=== PATIENT | male | born 1955 | race Two or more races ===

== ENCOUNTER 2022-09-23 14:15 | Emergency (ER) | payer MEDICARE, SELFPAY ==
[2022-09-23 14:23] VITALS: BP 143/88; PULSE 100; RESP 19; TEMP 36.1; O2SAT 98; BMI 30.2
--- NOTE | 2022-09-23 14:24 | ED_ITS ---
HPI - General Adult General Chief complaint: Wound/Laceration Stated complaint: Insect bite left ear Time Seen by Provider: 09/23/22 14:31 Source: patient Mode of arrival: ambulatory Limitations: no limitations History of Present Illness HPI narrative: Patient is a 67 year old assigned male at with no reported medical history presenting to the emergency department today with multiple insect bites. Patient states that he was working with some wood yesterday when something flew out and stung him on his left ear and right upper arm. Patient denies any dizziness, lightheadedness, abdominal pain, nausea, vomiting, fever, chills, blurry vision, double vision, loss of vision, chest pain, difficulty breathing, shortness of breath, back pain, night sweats, pain with urination, increased urinary frequency, increased urinary urgency, blood in his urine or stool, syncope or a near syncopal episode, recent trauma or falls, bowel incontinence, bladder incontinence, bowel retention, bladder retention, or any other complaints at this time. Onset (ago): day(s) (1) Location: left (ear) and right (upper arm) Severity: mild Relieving factors: none Exacerbating factors: none Associated symptoms: denies other symptoms Treatments prior to arrival: none Related Data Previous Rx's Medication Instructions Recorded cephalexin 500 mg capsule 500 mg PO Q6H 7 days #28 caps 09/23/22 prednisone 20 mg tablet 20 mg PO DAILY 7 days #7 tabs 09/23/22 Allergies Allergy/AdvReac Type Severity Reaction Status Date / Time No Known Allergies Allergy Verified 09/23/22 14:23 Review of Systems Constitutional: Constitutional: Reports no additional constitutional complaints, Denies chills, Denies fever(s) and Denies night sweats Eyes: Eyes: Reports no additional eye complaints, Denies blurry vision, Denies change in vision, Denies diplopia, Denies eye discharge, Denies loss of vision and Denies eye pain ENT: Denies dizziness Comments: left ear swelling, redness Cardiovascular: Cardiovascular: Reports no additional cardiovascular complaints, Denies chest pain, Denies lightheadedness, Denies Loss of Consciousness and Denies dyspnea Respiratory: Respiratory: Reports no additional respiratory complaints and D enies dyspnea Gastrointestinal: Gastrointestinal: Reports no additional gastrointestinal complaints, Denies abdominal pain, Denies melena, Denies hematochezia, Denies change in bowel habits and Denies change in stool character Genitourinary: Genitourinary: Reports no additional male genitourinary complaints, Denies hematuria, Denies oliguria, Denies difficulty urinating, Denies dysuria, Denies urinary frequency, Denies urinary hesitancy, Denies urinary incontinence and Denies urinary urgency Musculoskeletal: Musculoskeletal: Reports no additional musculoskeletal complaints, Denies numbness and Denies tingling Neurologic: Denies dizziness, Denies loss of vision, Denies numbness and Denies tingling Psychiatric: Psychiatric: Reports no additional psychiatric complaints Endocrine: Endocrine: Reports no additional endocrine complaints Hematologic/Lymphatic: Hematologic/Lymphatic: Reports no additional hematologic/lymphatic complaints Allergic/Immunologic: Allergic/Immunologic: Reports no additional allergic/immunologic complaints PMFSH Past Medical History Attestation statement: The following information was validated with the patient. Source: old records reviewed and nursing notes reviewed Social History Social History Advance Directives: No Advance Directives Information Provided: Yes Physical Exam ED Vital Signs: Vital Signs - 24 hr 09/23/22 14:23 Temperature 97 F Pulse Rate 100 Respiratory Rate 19 Blood Pressure 143/88 H Pulse Oximetry 98 Oxygen Delivery Method Room Air BMI result Body Mass Index 30.2 Const General: cooperative, no acute distress, alert and awake Nutritional Appearance: well nourished Orientation/consciousness: patient oriented x3 Limitations: no limitations HENMT Head: Yes normal to inspection and Yes atraumatic Ears: other (left upper ear swelling with minimal erythema and draining of se cornelia fluid) General nose exam: Normal external nose present, no nasal discharge noted and no epistaxis Face and sinus: Yes normal facial exam, No abrasion and No laceration Mouth: Normal oral and palatal mucosa present, no drooling and no muffled voice Eyes General: appearance normal, both eyes and all related structures Periorbital: periorbital findings normal Eyelids: Yes eyelids normal Conjunctivae: conjunctivae normal Pupils: Equal, round and reactive pupils present EOM: EOMs intact bilaterally Neck Neck: Yes normal visual inspection, Yes full ROM and Yes no lymphadenopathy Chest Chest palpation & inspection: normal inspection of the chest Resp Effort & Inspection: normal respiratory effort and able to speak in complete sentences GI Inspection: Yes normal to inspection Neuro General: patient oriented x3 and moves all extremities Cranial nerves: Yes Equal, round and reactive pupils present Cognition (Neuro): normal cognition Motor exam (neuro): 5/5 motor strength present throughout Sensory Exam: Normal double simultaneous stimulation for sensation Coordination: [id number] test normal Extrem General: Yes normal to inspection, Yes full ROM and Yes capillary refill normal Psych Appearance: grossly normal Mental Status: mental status grossly normal Affect: normal affect Attitude: cooperative Thought process: Normal thought process present Thought content: Normal thought content present Insight: Good insight present (Psych) Course Course Course Narrative: RME: 67 yold male presents to the ED for insecite bites on body with the worse being left ear. left ear is red, swollen, and positive for blisters. patient has bite david on right arms and scalp. patient states she was going through plants yesterday. Medical Decision Making Medical Decision Making [facility] Narrative: Patient is a 67 year old assigned male at with no reported medical history presenting to the emergency department today with left ear swelling and pain. Patient's physical exam showed mild swelling and erythema to the left upper ear and draining serous fluid. I explained my physical exam findings to the patient. I answered all questions asked by the patient. I stressed the importance of the patient taking his medication as prescribed. I stressed the importance of the patient following up with his primary care provider and a general surgeon to evaluate if the left ear needs drained further, IF the swelling persists after ABX and steroids. I stressed the importance of the patient returning to the emergency department immediately if his symptoms were to worsen or if he were to develop any dizziness, shortness of breath, difficulty breathing, chest pain, blurry vision, loss of vision, nausea, vomiting, abdominal pain, fever, chills, back pain, or any other complaints. Patient verbalized agreement and understanding with this treatment plan and discharge. Differential Diagnosis Differential Diagnoses: The differential diagnosis associated with the presentation includes insect sting to the left ear Discharge Plan Discharge Clinical Impression: Insect bite Patient Disposition: Home, Self-Care Instructions: Insect Bite or Sting (ED) Additional Instructions: Follow up with your primary care provider and if the swelling in your ear persists - a genearl surgeon. Return to the emergency department immediately if your symptoms worsen or if you develop any dizziness, shortness of breath, difficulty breathing, chest pain, blurry vision, loss of vision, nausea, vomiting, abdominal pain, fever, chills, back pain, or any other complaints. Prescriptions: New prednisone 20 mg tablet 20 mg PO DAILY 7 Days Qty: 7 0RF cephalexin 500 mg capsule 500 mg PO Q6H 7 Days Qty: 28 0RF Referrals: [facility] – [place], [place] General Surgeons [Provider Group] (Call to establish and follow up with a general surgeon if your left ear swelling persists. ) [facility] [Primary Care Provider] - Interventions: ED Discharge Assessment Last Done: 09/23/22 14:55 Discharge Date/Time: 09/23/22 14:57 Print Language: Armenian
== END 2022-09-23 14:57 | disposition home or self-care (01) ==
PROVIDERS: Emergency Provider Emergency Medicine
DX: H93.8X2 Other specified disorders of left ear (principal); Z79.899 Other long term (current) drug therapy
CPT/HCPCS: 99282; 99283

== ENCOUNTER 2022-12-03 12:09 | Emergency (ER) | payer MEDICARE, SELFPAY ==
[2022-12-03 12:44] VITALS: BP 136/79; PULSE 76; RESP 18; TEMP 36.6; O2SAT 99; BMI 29.6
--- NOTE | 2022-12-03 12:46 | ED_ITS ---
HPI - Animal Bite General Chief Complaint: Animal Bite Stated Complaint: Bug Bites Time Seen by Provider: 12/03/22 12:48 Source: patient and old records reviewed Mode of arrival: ambulatory Limitations: no limitations History of Present Illness HPI narrative: 67 yo male presents to the ER for evaluation of multiple red, itchy, inflamed bug bites on his face that occurred 2 days ago when he was working in his yard. He states he has 3 separate bites that have increased significantly in size, are red, hot, and swollen. They are very itchy and starting to ooze. Denies fever, chills, N/V/D, myalgias. No known tick bites. He states he was seen he seen here in August for similar issue and got prescription for steroids and antibiotics with resolution. complaint: other (insect bites) Onset (ago): day(s) (2) Animal: other (insect, unknown) Mechanism: bite Location: head and face Pain description: burning and constant Associated symptoms: none Treatments prior to arrival: other (topical alcohol) Related Data Patient tetanus UTD: Yes Previous Rx's Medication Instructions Recorded cephalexin 500 mg capsule 500 mg PO Q6H 7 days #28 caps 09/23/22 prednisone 20 mg tablet 20 mg PO DAILY 7 days #7 tabs 09/23/22 cephalexin 500 mg capsule 500 mg PO Q6H 7 days #28 caps 12/03/22 mupirocin 2 % topical ointment 1 appl topical BID #22 grams 12/03/22 prednisone 20 mg tablet 40 mg PO DAILY #10 tabs 12/03/22 Allergies Allergy/AdvReac Type Severity Reaction Status Date / Time No Known Allergies Allergy Verified 09/23/22 14:23 Review of Systems Review of Systems: Yes all other systems are reviewed and are negative [facility] Social History Social History Advance Directives: No Advance Directives Information Provided: Yes Physical Exam ED Vital Signs: Vital Signs - 24 hr 12/03/22 12:44 Temperature 97.9 F Pulse Rate 76 Respiratory Rate 18 Blood Pressure 136/79 Pulse Oximetry 99 Oxygen Delivery Method Room Air BMI result Body Mass Index 29.6 Appearance: Alert. Oriented X3. No acute distress. HEENT: 3 areas of erythema, warmth, tenderness w/ central oozing moderate sized located on the left mandaeism, right post-auricular area and left ear lobe. clear drainage. no fluctuance CVS: Normal heart rate and rhythm. Pulses normal. Respiratory: No respiratory distress. Skin: Skin warm and dry. Normal skin color. Normal skin turgor. No rashes. Extremities: normal inspection x4, no joint swelling. Neuro: Oriented X 3. grossly normal, nonfocal Medical Decision Making Medical Decision Making [facility] Narrative: 67 yo male presenting for evaluation of multiple erythematous, swollen, itchy areas on his face and head after working in his yard c/w insect bites. They have increased in size and are draining. Exam c/w localized cellulitic areas. Will treat w/ abx, steroids and benadryl. Return precautions discussed w/ the patient. Stable for d/c home Differential Diagnosis Differential Diagnoses: The differential diagnosis associated with the presen tation includes allergic reaction, insect bites, cellulitis, abscess, poison ranjana External Record Review External record reviewed: Outpatient record Prescription Management I considered prescription management with: Pain Medication and Antibiotic Critical Care Time Critical Care Time Critical Care Time: No Discharge Plan Discharge Clinical Impression: Insect bite, Cellulitis Patient Disposition: Home, Self-Care Instructions: Cellulitis (DC) Additional Instructions: Take the prescribed antibiotics as directed, complete the entire course and do not miss any doses You can take Benadryl 25-50 mg as needed for itching. If you develop new or worsening symptoms call 911 or come back to the ER for further evaluation. Prescriptions: New cephalexin 500 mg capsule 500 mg PO Q6H 7 Days Qty: 28 0RF prednisone 20 mg tablet 40 mg PO DAILY Qty: 10 0RF mupirocin 2 % ointment 1 appl topical BID Qty: 22 0RF No Action prednisone 20 mg tablet 20 mg PO DAILY 7 Days Qty: 7 0RF cephalexin 500 mg capsule 500 mg PO Q6H 7 Days Qty: 28 0RF
== END 2022-12-03 13:05 | disposition home or self-care (01) ==
LOC: HO.ED 12:52
PROVIDERS: Emergency Provider Emergency Medicine
DX: L03.211 Cellulitis of face (principal); Z79.899 Other long term (current) drug therapy
CPT/HCPCS: 99282; 99283

== ENCOUNTER 2024-05-25 23:38 | Emergency (ER) | payer OTHER, SELFPAY ==
--- NOTE | ~2024-05-25 | XR_ITS ---
CLINICAL HISTORY: fall 3 view right hand Comparison: None Findings: No acute fractures or dislocations. Degenerative changes present at the radioscaphoid articulation with joint space narrowing at this site. No radiopaque foreign body. IMPRESSION: 1. No acute fracture or dislocation injury identified at the right hand. This document has been electronically signed by: Leo Dial MD on 05/26/2024 00:10:41
[2024-05-25 23:42] VITALS: BP 138/74; PULSE 95; RESP 17; TEMP 36.9; O2SAT 98; BMI 29.7
--- NOTE | 2024-05-26 00:15 | ED.EXTPRO ---
HPI - Extremity Problem General Chief complaint: Extremity Injury, Upper Stated complaint: right hand swollen - fall Time Seen by Provider: 05/26/24 00:15 Source: patient Mode of arrival: ambulatory Limitations: no limitations History of Present Illness ED Provider: HPI Narrative: Patient apparently tripped and fell around 18:00 for walking to his mailbox over extended his right hand complaining of diffuse pain with the right wrist also has superficial abrasion right knee ambulatory in his steady gait otherwise no head injury not on any blood thinner Related Data Previous Rx's ?Medication ?Instructions ?Recorded cephalexin 500 mg capsule 500 mg PO Q6H 7 days #28 caps 09/23/22 prednisone 20 mg tablet 20 mg PO DAILY 7 days #7 tabs 09/23/22 cephalexin 500 mg capsule 500 mg PO Q6H 7 days #28 caps 12/03/22 mupirocin 2 % topical ointment 1 appl topical BID #22 grams 12/03/22 prednisone 20 mg tablet 40 mg (2 x 20 mg) PO DAILY #10 tabs 12/03/22 ibuprofen 600 mg tablet 600 mg PO Q6H PRN fever or pain 05/26/24 #30 tabs Allergies Allergy/AdvReac Type Severity Reaction Status Date / Time No Known Allergies Allergy Verified 05/25/24 23:45 Review of Systems Review of Systems: Yes all other systems are reviewed and are negative [facility] Social History Social History Advance Directives: No Advance Directives Information Provided: Yes Do you have a plan to hurt others: No Plan Physical Exam Vital Signs: Vital Signs: Last Vital Signs Temp 98.4 F 05/25/24 23:42 Pulse 95 05/25/24 23:42 Resp 17 05/25/24 23:42 BP 138/74 05/25/24 23:42 Pulse Ox 98 05/25/24 23:42 O2 Del Method Room Air 05/25/24 23:42 BMI result Body Mass Index 29.7 Appearance: Alert. Oriented X3. No acute distress. ENT: Pharynx normal. Oral Mucosa moist Neck: Normal inspection. Neck supple. CVS: Normal heart rate and rhythm. Pulses normal. Respiratory: No respiratory distress. Equal air entry bilateral, no wheezing/rales/rhonchi Skin: Skin warm and dry. Normal skin color. Normal skin turgor. Extremities: No lower extremity edema. Right wrist diffuse swelling the dorsum no focal bony tenderness good range of movement neurovascular intact, right knee superficial abrasion no knee effusion patient ambulatory in steady gait without significant pain Neuro: Oriented X 3. Medical Decision Making Medical Decision Making [facility] Narrative: Patient with right wrist sprain will place wrist splint and advised to take ibuprofen patient advised to follow up in 7-10 days if pain continues for repeat x-ray to rule out fracture Differential Diagnosis Differential Diagnoses: The differential diagnosis associated with the presentation includes Contusion of the hand/scaphoid fracture/wrist fracture Independent Interpretation I performed an independent interpretation of an: Plain X-Ray Radiology Impression Discussion of test interpretation with radiology: I have reviewed the radiologist's reading. Radiologist Impression: No fracture Discharge Plan Discharge Clinical Impression: Sprain and strain of wrist Patient Disposition: Home, Self-Care Instructions: Wrist Sprain (ED) Additional Instructions: Your x-rays negative for any fracture Wear the wrist splint for support Ibuprofen for pain Report to the ER if pain continues for repeat x-ray in 10 days Prescriptions: New ibuprofen 600 mg tablet 600 mg PO Q6H PRN (Reason: fever or pain) Qty: 30 0RF No Action cephalexin 500 mg capsule 500 mg PO Q6H 7 Days Qty: 28 0RF prednisone 20 mg tablet 40 mg PO DAILY Qty: 10 0RF mupirocin 2 % ointment 1 appl topical BID Qty: 22 0RF prednisone 20 mg tablet 20 mg PO DAILY 7 Days Qty: 7 0RF cephalexin 500 mg capsule 500 mg PO Q6H 7 Days Qty: 28 0RF Print Language: Grenadian
[2024-05-26] MEDS: Ibuprofen 600 MG TABLET PO (00:33)
== END 2024-05-26 00:41 | disposition home or self-care (01) ==
PROVIDERS: Emergency Provider Internal Medicine
DX: S63.501A Unspecified sprain of right wrist, initial encounter (principal); S80.211A Abrasion, right knee, initial encounter; M25.531 Pain in right wrist; X50.1XXA Overexertion from prolonged static or awkward postures, initial encounter; Y93.9 Activity, unspecified; Y92.007 Garden or yard of unspecified non-institutional (private) residence as the place of occurrence of the external cause; Y99.8 Other external cause status
CPT/HCPCS: 29125; 73130; 99283; 99284

== ENCOUNTER → 2024-05-25 23:55 | Outpatient (BNV) | payer OTHER, SELFPAY | PROVIDERS: Emergency Provider Internal Medicine; Visit Provider Radiology Diagnostic Radiology | DX: S63.501A Unspecified sprain of right wrist, initial encounter (principal); W19.XXXA Unspecified fall, initial encounter | CPT/HCPCS: 73130 ==

== ENCOUNTER 2024-12-25 19:07 | Emergency (ER) | payer OTHER, SELFPAY ==
--- NOTE | ~2024-12-25 | XR_ITS ---
CLINICAL HISTORY: pain Abdominal radiographs Comparison: None available Findings: There is a nonobstructive bowel gas pattern. Stool quantity is moderately increased. No pneumoperitoneum or pneumatosis. No acute osseous or soft tissue abnormality. Impression: Moderately increased stool quantity may indicate constipation. This document has been electronically signed by: Salima Goldstein MD on 12/25/2024 20:48:49
[2024-12-25 19:13] VITALS: BP 132/63; PULSE 99; RESP 18; TEMP 36.9; O2SAT 98; BMI 28.7
--- NOTE | 2024-12-25 19:15 | ED_ITS ---
HPI - General Adult General Chief complaint: Abdominal Pain Stated complaint: left side abd pain Time Seen by Provider: 12/25/24 19:31 Source: patient Limitations: no limitations History of Present Illness ED Provider: Yadira Choi PA-C HPI narrative: 69-year-old male presents with the abdominal pain x3 days. Pain is intermittent, described as ?a warm sensation?. It is nonradiating. Most focal in left lower abdomen. Denies nausea vomiting diarrhea. The patient states he has been having minimal bowel movements, passing small amounts of stool at a time. Denies abdominal distention or inability to pass flatus from below, no fevers. Patient denies dysuria, hematuria, history of kidney stones. No testicular pain or swelling. Related Data Previous Rx's ?Medication ?Instructions ?Recorded cephalexin 500 mg capsule 500 mg PO Q6H 7 days #28 cap s 09/23/22 prednisone 20 mg tablet 20 mg PO DAILY 7 days #7 tab s 09/23/22 cephalexin 500 mg capsule 500 mg PO Q6H 7 days #28 cap s 12/03/22 mupirocin 2 % topical ointment 1 appl topical BID #22 grams 12/03/22 prednisone 20 mg tablet 40 mg (2 x 20 mg) PO DAILY # 10 tabs 12/03/22 ibuprofen 600 mg tablet 600 mg PO Q6H PRN fever or p ain 05/26/24 #30 tabs Allergies Allergy/AdvReac Type Severity Reaction Status Date / Time No Known Allergies Allergy Verified 12/25/24 19:17 Review of Systems 2 Review of Systems: Yes all other systems are reviewed and are negative Constitutional: Constitutional: Denies fatigue and Denies fever(s) Cardiovascular: Cardiovascular: Denies chest pain and Denies dyspnea Respiratory: Respiratory: Denies dyspnea Gastrointestinal: Gastrointestinal: Reports abdominal pain, Denies bloating, Reports constipation, Denies diarrhea, Denies nausea and Denies vomiting Genitourinary: Genitourinary: Denies hematuria, Denies dysuria and Denies flank pain Endocrine: Endocrine: Denies fatigue PMFSH Past Medical History Attestation statement: The following information was validated with the patient. Physical Exam ED Vital Signs: Vital Signs - 24 hr 12/25/24 19:13 12/25/24 21:49 Temperature 98.4 F 98.3 F Pulse Rate 99 54 Respiratory Rate 18 16 Blood Pressure 132/63 110/62 Pulse Oximetry 98 96 Oxygen Delivery Method Room Air Room Air BMI result Body Mass Index 28.7 Const Other: Alert well-appearing Orientation/consciousness: patient oriented x3 Resp Effort & Inspection: normal respiratory effort Cardio Other: Normal peripheral perfusion GI Other: Abdomen is soft, nondistended nontender no guarding Skin Other: Warm dry no rash Neuro General: patient oriented x3, gait normal, no focal motor deficits and CN's II- XI intact bilaterally Psych Other: Cooperative Course Course Course Narrative: RME, this is a rapid medical exam performed by Jagdeep Naranjo please refer to primary provider for complete H&P- 69-year-old male presents for evaluation of left-sided abdominal pain for the last few days. He reports he is having normal bowel movements, denies any nausea vomiting, diarrhea. His pain is worse when he plays in his left side. Plan for basic labs and urinalysis. Will defer any potential imaging to primary ER provider Medications Administered Discontinued Medications Generic Name Dose Route Start Last Admin Trade Name Freq PRN Reason Stop Dose Admin Sodium Chloride 500 mls @ 500 mls/hr 12/25/24 19:49 12/25/24 21:10 Ns IV 12/25/24 20:48 Infused .Q1H ONE Infusion Ketorolac Tromethamine 15 mg 12/25/24 19:49 12/25/24 20:07 Ketorolac Tromethamine 15 Mg/Ml Vial IVPUSH 12/25/24 19:50 15 mg ONCE ONE Administration Medical Decision Making Medical Decision Making [facility] Narrative: 69-year-old male presents with the abdominal pain x3 days. Pain is intermittent, described as ?a warm sensation?. It is nonradiating. Most focal in left lower abdomen. Denies nausea vomiting diarrhea. The patient states he has been having minimal bowel movements, passing small amounts of stool at a time. Denies abdominal distention or inability to pass flatus from below, no fevers. Patient denies dysuria, hematuria, history of kidney stones. No testicular pain or swelling. No underlying chronic issues History: Per patient I have considered the following differential diagnoses: Bowel obstruction, constipation, UTI, renal colic, diverticulitis, torsion Plan: The patient is likely constipated without obstructive symptoms. Screening labs obtained and are completely normal. We will obtain a KUB. He has no related symptoms to suggest UTI. There was no back pain flank pain active GI symptoms to suggest renal colic. Imaging not warranted, do not need a UA I have independently reviewed the following tests: Labs: No leukocytosis, not anemic, no electrolyte abnormality noted KUB:Findings: There is a nonobstructive bowel gas pattern. Stool quantity is moderately increased. No pneumoperitoneum or pneumatosis. No acute osseous or soft tissue abnormality. Impression: Moderately increased stool quantity may indicate constipation. Differential Diagnosis Differential Diagnoses: The differential diagnosis associated with the presentation includes See medical decision-making Admission/Observation Consideration of admission/observation: Escalation of care including admission/observation considered Not applicable Lab Data MDM Lab Attestation statement: I reviewed the patient's lab results. 12/25/24 19:29 12/25/24 19:29 Labs: Lab Results 12/25/24 Range/Units 19:29 WBC 7.9 (4.8-10.8) X10*3/uL RBC 4.05 L (4.60-5.80) X10*6/uL Hgb 12.6 L (14.0-18.0) g/dl Hct 37.8 L (42.0-52.0) % MCV 93.3 (80.0-98.0) fL MCH 31.1 (27.0-33.0) pg MCHC 33.3 (31.0-36.0) g/dl RDW 13.6 (11.0-16.0) % Plt Count 260 (160-400) X10*3/uL MPV 10.2 (9.4-12.4) fL Immature Gran % (Auto) 0.3 (0.0-0.4) % Neut % (Auto) 55.4 (45-73) % Lymph % (Auto) 31.7 (20-40) % [place] % (Auto) 8.9 (2-11) % Eos % (Auto) 2.8 (0-4) % Baso % (Auto) 0.9 (0-2) % Lymph # (Auto) 2.5 (1.2-4.9) X10*3/uL [place] # (Auto) 0.7 (0.1-1.2) X10*3/uL Eos # (Auto) 0.2 (0.0-0.4) X10*3/uL Baso # (Auto) 0.1 (0.0-0.2) X10*3/uL Abs Immat Gran (auto) 0.02 (0.00-0.03) X10*3/uL Absolute Neuts (auto) 4.4 (2.0-8.3) x10*3/uL Absolute Nucleated RBC 0.000 (0.0-0.012) X10*3/uL Nucleated RBC % (auto) 0.0 (0.0-0.2) /100WBC Sodium 143 (135-145) mmol/L Potassium 4.1 (3.3-5.1) mmol/L Chloride 107 (96-108) mmol/L Carbon Dioxide 25 (22-29) mmol/L Anion Gap 15 (12-20) BUN 19 H (9-16) mg/dL Creatinine 1.21 (0.5-1.4) mg/dL Estim Creat Clear Calc 61.1 Estimated GFR 60 Random Glucose 75 (60-115) mg/dL Calcium 9.1 (8.4-10.2) mg/dL Magnesium 2.3 (1.6-2.6) mg/dL Total Bilirubin 0.4 (0.0-1.0) mg/dL AST 38 H (5-37) U/L ALT 18 (0-40) U/L Alkaline Phosphatase 62 (39-117) U/L Total Protein 7.7 (6.5-8.0) g/dL Albumin 4.3 (3.5-5.0) g/dL Lipase 10 (8-78) U/L Radiology Impression Discussion of test interpretation with radiology: I have reviewed the radiologist's reading. Discharge Plan Discharge Clinical Impression: Constipation Patient Disposition: Home, Self-Care Instructions: Constipation (ED) Additional Instructions: All of your screening labs were normal. You were found to be constipated. See home care instructions. You can purchase [id number] Colace, this is a stool softener, use it twice a day. In addition, use [id number] MiraLax, 3 to 4 times a day until you begin having regular normal bowel movements. Follow up with your primary care provider as needed. Prescriptions: No Action cephalexin 500 mg capsule 500 mg PO Q6H 7 Days Qty: 28 0RF prednisone 20 mg tablet 40 mg PO DAILY Qty: 10 0RF mupirocin 2 % ointment 1 appl topical BID Qty: 22 0RF ibuprofen 600 mg tablet 600 mg PO Q6H PRN (Reason: fever or pain) Qty: 30 0RF prednisone 20 mg tablet 20 mg PO DAILY 7 Days Qty: 7 0RF cephalexin 500 mg capsule 500 mg PO Q6H 7 Days Qty: 28 0RF Interventions: ED Discharge Assessment Last Done: 12/25/24 22:13 Discharge Date/Time: 12/25/24 22:14 Print Language: Romanian
[2024-12-25 19:33] LABS: MANUAL DIFF FLAG NO
--- OUTSIDE RECORDS SUMMARY | 2024-12-25 19:33 | XMS_ITS | Clinical Summary ---
[facility] Organization [facility] [address] [place] [address] Care Team Providers Care Haul Cane Brakeman Name Role Phone Unavailable Primary Care Provider Unavailabl e Social History Tobacco Use Types Packs/Day Years Used Date Smoking Tobacco: Never Assessed Sex and Gender Information Value Date Recorded Sex Assigned at Not on file Legal Sex Male 6:10 PM EST Gender Identity Not on file Sexual Orientation Not on file Plan of Treatment Health Maintenance Due Date Last Done Comments DTaP,Tdap,and Td Vaccines (1 - Tdap) 01/24/1976 Pneumococcal Vaccine: 50+ Ye ars (1 of 1 - PCV) 2007 Zoster Vaccines (1 of 2) 2007 COVID-19 Vaccine (1 - 2023-2 5 season) 2023 Depression Screening 04/28/2024 Influenza Vaccine (#1) 2024 RSV Immunization Adult Patie nts (1 - 1-dose 75+ series) 01/24/2032 HIB Vaccines Aged Out No longer eligi ble based on patient's age to complete this topic HPV Vaccines Aged Out No longer eligi ble based on patient's age to complete this topic Hepatitis A Vaccines Aged Out No long er eligible based on patient's age to complete this topic Hepatitis B Vaccines Aged Out No long er eligible based on patient's age to complete this topic IPV Vaccines Aged Out No longer eligi ble based on patient's age to complete this topic MMR Vaccines Aged Out No longer eligi ble based on patient's age to complete this topic Meningococcal ACWY Vaccine Aged Out N o longer eligible based on patient's age to complete this topic Meningococcal B Vaccine Aged Out No l onger eligible based on patient's age to complete this topic RSV Immunization Patients Un shirlene 20 months Aged Out No longer eligible b ased on patient's age to complete this topic Varicella Vaccines Aged Out No longer eligible based on patient's age to complete this topic
--- OUTSIDE RECORDS SUMMARY | 2024-12-25 19:33 | XMS_ITS | Clinical Summary ---
Author Organization [employer] Address [address] [place] [address] [address] [place] [address] Care Team Providers Care [facility] Name Role Phone Unavailable Primary Care Provider Unavailabl e Social History Tobacco Use Types Packs/Day Years Used Date Smoking Tobacco: Never Assessed Sex and Gender Information Value Date Recorded Sex Assigned at Male 02/25/2022 10:40 AM EDT Legal Sex Male 10:40 AM EDT Gender Identity Male 02/25/2022 10:40 AM EDT Sexual Orientation Straight 02/25/2022 10 :40 AM EDT Last Filed Vital Signs Vital Sign Reading Time Taken Comments Blood Pressure 151/89 01/02/2022 12:09 AM EDT Pulse 90 01/02/2022 12:09 AM EDT Temperature - - Respiratory Rate - - Oxygen Saturation - - Inhaled Oxygen Concentration - - Weight 85.5 kg (188 lb 9.6 oz) 01/02/2022 12:09 AM EDT Height 165.1 cm (5' 5 ) 01/02/2022 12:09 AM EDT Body Mass Index 31.38 01/02/2022 12:09 AM EDT Plan of Treatment Health Maintenance Due Date Last Done Comments CT Colonography 1957 Colonoscopy 1957 Colorectal Cancer Screening 1957 Depression Screening 1957 FIT DNA/Cologuard 1957 FIT 1957 FOBT 1957 Lipid Panel 1957 SDOH Screening 1957 Sigmoidoscopy 1957 Alcohol/Substance Use Screening 1969 Tobacco Screening 1969 Hepatitis C Screening 1975 DTaP/Tdap/Td Vaccines (1 - Tdap) 01/24/1976 Pneumococcal Vaccine: 50+ Ye ars (1 of 1 - PCV) 2007 Zoster Vaccines (1 of 2) 2007 COVID-19 Vaccine (1 - 2023-2 5 season) 2023 Influenza Vaccine (#1) 2024 RSV Patients and Pa tients Aged 60 years or older (1 - 1-dose 75+ series) 01/24/2032 HIB [...] patient's age to complete this topic Meningococcal Vaccine Aged Out No negro luz elena eligible based on patient's age to complete this topic RSV under 20 months Aged Out No longe r eligible based on patient's age to complete this topic Rotavirus Vaccines Aged Out No longer eligible based on patient's age to complete this topic Insurance [employer] MEDICARE ADVANTAGE HMO [facility] [address] [place] [id number] [address] [place] [id number]
[2024-12-25 19:40] LABS: Hematocrit 37.8 % (42.0-52.0); Hemoglobin 12.6 g/dl (14.0-18.0); Imm Gran Abs Auto 0.02 X10*3/uL (0.00-0.03); Imm Gran Pct Auto 0.3 % (0.0-0.4); Lymphocytes Absolute Auto 2.5 X10*3/uL (1.2-4.9); Mean Corpuscular HGB Conc 33.3 g/dl (31.0-36.0); Mean Corpuscular Hemoglobin 31.1 pg (27.0-33.0); Mean Corpuscular Volume 93.3 fL (80.0-98.0); NRBC Abs Auto 0.000 X10*3/uL (0.0-0.012); NRBC Pct Auto 0.0 /100WBC (0.0-0.2); Platelet Count 260 X10*3/uL (160-400); Red Blood Count 4.05 X10*6/uL (4.60-5.80); White Blood Count 7.9 X10*3/uL (4.8-10.8)
[2024-12-25 19:51] LABS: Alanine Aminotransferase 18 U/L (0-40); Albumin Level 4.3 g/dL (3.5-5.0); Alkaline Phosphatase 62 U/L (39-117); Anion Gap 15 (12-20); Aspartate Amino Transferase 38 U/L (5-37); Blood Urea Nitrogen 19 mg/dL (9-16); Calcium 9.1 mg/dL (8.4-10.2); Carbon Dioxide 25 mmol/L (22-29); Chloride 107 mmol/L (96-108); Creatinine Clr Calc Pharmacy 61.1; Estimated Glomerular Filt Rate 60; Lipase 10 U/L (8-78); Magnesium 2.3 mg/dL (1.6-2.6); Potassium 4.1 mmol/L (3.3-5.1); Sodium 143 mmol/L (135-145); Total Protein 7.7 g/dL (6.5-8.0)
[2024-12-25 21:49] VITALS: BP 110/62; PULSE 54; RESP 16; TEMP 36.8; O2SAT 96
[2024-12-25 22:13] VITALS: BP 110/62; PULSE 54; RESP 16; TEMP 36.8; O2SAT 96
== END 2024-12-25 22:14 | disposition home or self-care (01) ==
PROVIDERS: Physician Assistant; Emergency Provider Emergency Medicine
DX: K59.00 Constipation, unspecified (principal); R10.32 Left lower quadrant pain; Z79.899 Other long term (current) drug therapy
CPT/HCPCS: 36415; 74018; 80053; 83690; 83735; 85025; 96361; 96374; 99284; J1885

== ENCOUNTER → 2024-12-25 19:49 | Outpatient (BNV) | payer OTHER, SELFPAY | PROVIDERS: Visit Provider Radiology Diagnostic Radiology | DX: K59.00 Constipation, unspecified (principal) | CPT/HCPCS: 74018 ==

== ENCOUNTER 2025-01-01 20:31 | Emergency (ER) | payer OTHER, SELFPAY ==
--- NOTE | ~2025-01-01 | CT_ITS ---
CLINICAL HISTORY: left groin pain CT abdomen and pelvis without contrast Comparison: CR - XR KUB - 12/25/24 20:24 EDT Findings: No consolidation or effusion. Spleen is normal. Hepatic parenchyma is normal. Gallbladder is partially distended. Pancreas demonstrates fatty atrophic change. Adrenal glands are normal. Kidneys demonstrate no nephrolithiasis or ureteral lithiasis. Small bowel is normal. Colon demonstrates a moderate stool burden. Appendix is normal. There is diverticulosis without diverticulitis. Moderate stool burden in the sigmoid and rectum. Vascular calcifications are noted in the abdominal aorta and iliac arteries. There is an infrarenal abdominal aortic dilatation measuring 3.8 cm. Small fat containing umbilical hernias. No bowel obstruction, pneumoperitoneum, or pneumatosis. The bones are intact. There are bilateral L5 pars defects with severe disc space narrowing at L5/S1 and grade 2 anterolisthesis. Severe bilateral foraminal narrowing is present. IMPRESSION: No acute findings. Moderate stool burden Infrarenal abdominal aortic dilation without meeting aneurysmal criteria. No periaortic fat stranding. L5/S1 spondylolysis with spondylolisthesis. Severe bilateral foraminal narrowing. This document has been electronically signed by: Jeremie Torres III, MD PHD on 01/02/2025 01:42:00
[2025-01-01 20:39] VITALS: BP 127/63; PULSE 65; RESP 20; TEMP 37; O2SAT 97; BMI 30.1
--- NOTE | 2025-01-01 20:39 | ED_ITS ---
HPI - General Adult General Chief complaint: Abdominal Pain Stated complaint: was here 12/31/24 for constipation now feels burning Time Seen by Provider: 01/01/25 22:32 Source: patient Mode of arrival: ambulatory Limitations: no limitations History of Present Illness HPI narrative: This is a 69 years old presented to the emergency department with a chief complaint of left groin pain. He has no other complaint no nausea no vomiting no diarrhea no fever. He was seen in the emergency department on December 25 diagnosed with constipation sent home on MiraLax Onset (ago): week(s) (1) Location: abdomen (Groin left) Radiation: non-radiation Severity: moderate Quality: burning Pain Consistency: constant Relieving factors: none Exacerbating factors: none Associated symptoms: denies other symptoms Related Data Previous Rx's ?Medication ?Instructions ?Recorded cephalexin 500 mg capsule 500 mg PO Q6H 7 days #28 cap s 09/23/22 prednisone 20 mg tablet 20 mg PO DAILY 7 days #7 tab s 09/23/22 cephalexin 500 mg capsule 500 mg PO Q6H 7 days #28 cap s 12/03/22 mupirocin 2 % topical ointment 1 appl topical BID #22 grams 12/03/22 prednisone 20 mg tablet 40 mg (2 x 20 mg) PO DAILY # 10 tabs 12/03/22 ibuprofen 600 mg tablet 600 mg PO Q6H PRN fever or p ain 05/26/24 #30 tabs naproxen 500 mg tablet (Naprosyn) 500 mg PO BID PRN PA IN #20 tabs 01/02/25 Allergies Allergy/AdvReac Type Severity Reaction Status Date / Time No Known Allergies Allergy Verified 01/01/25 20:43 Review of Systems 2 Constitutional: Constitutional: Reports no additional constitutional complaints ENT: Reports system reviewed and no additional complaints, except as documented Respiratory: Respiratory: Reports no additional respiratory complaints [facility] Past Medical History [facility] Narrative: He denies any major medical problems Social History Social History Advance Directives: No Advance Directives Information Provided: No Physical Exam ED Exam Exam: He looks well is not toxic interactive Vital Signs: Vital Signs - 24 hr 01/01/25 20:39 01/02/25 00:28 Temperature 98.6 F 97.0 F Pulse Rate 65 65 Respiratory Rate 20 16 Blood Pressure 127/63 99/56 L Pulse Oximetry 97 95 Oxygen Delivery Method Room Air Room Air BMI result Body Mass Index 30.1 Const General: cooperative Nutritional Appearance: well nourished Orientation/consciousness: patient oriented x3 Limitations: no limitations HENMT Head: Yes normal to inspection Ears: hearing grossly normal bilaterally General nose exam: Normal external nose present Face and sinus: Yes normal facial exam Mouth: Normal oral and palatal mucosa present Throat: Yes posterior oropharynx normal Neck Neck: Yes normal visual inspection Chest Chest palpation & inspection: normal inspection of the chest Resp Effort & Inspection: normal respiratory effort Auscultation: clear to auscultation bilaterally Cardio Jugular venous distension: no JVD Palpation: normal PMI Rate: regular rate GI Inspection: Yes normal to inspection Palpation (GI): Soft to palpation, not firm, nontender and no guarding Percussion: Yes normal to percussion Auscultation: normal bowel sounds Skin General skin exam: no rashes or lesions noted Lesions: no lesions Rashes: no rashes Trauma: no lacerations or abrasions Wounds: no wounds Neuro General: patient oriented x3 Cranial nerves: Yes CN's II-XII intact bilaterally Course Course Course Narrative: This is a Rapid Medical Examination (RME) performed by Azalia June PA-C in triage. Full HPI, ROS, assessment and treatment plan per primary provider in the Main ED. Hx: 69 yo M here for eval of burning sensation to groin area. no N/V, burning w/ urination. here on 12/25/24, diagnosed w/ constipation on KUB, taking stool softeners w/ positive BM. Plan: labs, UA Reevaluation(s) Reevaluation #1: CT negative workup showed that he has a fentanyl in the urine we will discharge him home Time: 01:55 Medications Administered Discontinued Medications Generic Name Dose Route Start Last Admin Trade Name Freq PRN Reason Stop Dose Admin Diazepam 2 mg 01/01/25 23:15 01/01/25 23:22 Diazepam 2 Mg Tablet PO 01/01/25 23:16 2 mg ONCE ONE Administration Ibuprofen 800 mg 01/01/25 22:50 01/01/25 23:21 Ibuprofen 800 Mg Tablet PO 01/01/25 22:51 800 mg ONCE ONE Administration Medical Decision Making Medical Decision Making [facility] Narrative: Patient is here with left groin pain we will obtain UA labs CT Differential Diagnosis Differential Diagnoses: The differential diagnosis associated with the presentation includes Kidney stone/ UTI Admission/Observation Consideration of admission/observation: Escalation of care including admission/observation considered Lab Data MDM Lab Attestation statement: I reviewed the patient's lab results. 01/02/25 00:18 01/01/25 23:30 Labs: Lab Results 01/01/25 01/01/25 01/02/25 Range/Units 22:46 23:30 00:18 WBC 6.7 (4.8-10.8) X10*3/uL RBC 4.14 L (4.60-5.80) X10*6/uL Hgb 13.0 L (14.0-18.0) g/dl Hct 38.0 L (42.0-52.0) % MCV 91.8 (80.0-98.0) fL MCH 31.4 (27.0-33.0) pg MCHC 34.2 (31.0-36.0) g/dl RDW 13.6 (11.0-16.0) % Plt Count 204 (160-400) X10*3/uL MPV 11.1 (9.4-12.4) fL Immature Gran % (Auto) 0.3 (0.0-0.4) % Neut % (Auto) 54.3 (45-73) % Lymph % (Auto) 32.5 (20-40) % [place] % (Auto) 7.1 (2-11) % Eos % (Auto) 4.6 H (0-4) % Baso % (Auto) 1.2 (0-2) % Lymph # (Auto) 2.2 (1.2-4.9) X10*3/uL [place] # (Auto) 0.5 (0.1-1.2) X10*3/uL Eos # (Auto) 0.3 (0.0-0.4) X10*3/uL Baso # (Auto) 0.1 (0.0-0.2) X10*3/uL Abs Immat Gran (auto) 0.02 (0.00-0.03) X10*3/uL Absolute Neuts (auto) 3.7 (2.0-8.3) x10*3/uL Absolute Nucleated RBC 0.000 (0.0-0.012) X10*3/uL Nucleated RBC % (auto) 0.0 (0.0-0.2) /100WBC Smear Tech's Comments VERIFIED Sodium 142 (135-145) mmol/L Potassium 4.6 (3.3-5.1) mmol/L Chloride 106 (96-108) mmol/L Carbon Dioxide 26 (22-29) mmol/L Anion Gap 15 (12-20) BUN 16 (9-16) mg/dL Creatinine 1.06 (0.5-1.4) mg/dL Estim Creat Clear Calc 66.7 Estimated GFR > 60 Random Glucose 96 (60-115) mg/dL Calcium 9.6 (8.4-10.2) mg/dL Magnesium 2.2 (1.6-2.6) mg/dL Total Bilirubin 0.5 (0.0-1.0) mg/dL AST 29 (5-37) U/L ALT 21 (0-40) U/L Alkaline Phosphatase 71 (39-117) U/L Total Protein 8.5 H (6.5-8.0) g/dL Albumin 4.8 (3.5-5.0) g/dL Urine Color Yellow Urine Appearance Clear Urine pH 6.0 (5.0-9.0) Ur Specific [place] 1.010 (1.005-1.025) Urine Protein Negative (Neg-Trace) mg/dL Urine Glucose (UA) Negative (Negative) mg/dL Urine Ketones Negative (Negative) mg/dL Urine Blood Negative (Negative) Urine Nitrite Negative (Negative) Ur Leukocyte Esterase Negative (Negative) Urine Opiates Screen POSITIVE H (Not Detect) Ur Buprenorphine Scrn Not Detected (Not Detect) ng/mL Ur Oxycodone Screen Not Detected (Not Detect) ng/mL Urine Methadone Screen Not Detected (Not Detect) ng/mL Urine Fentanyl Screen POSITIVE H (Not Detect) Ur Barbiturates Screen Not Detected (Not Detect) Ur Phencyclidine Scrn Not Detected (Not Detect) Ur Amphetamines Screen Not Detected (Not Detect) U Benzodiazepines Scrn Not Detected (Not Detect) Urine Cocaine Screen Not Detected (Not Detect) U Marijuana (THC) Screen Not Detected (Not Detect) Independent Interpretation I performed an independent interpretation of an: CT Scan Radiology Impression Discussion of test interpretation with radiology: I have reviewed the radiologist's reading. Radiologist Impression: lithiasis or ureteral lithiasis. Small bowel is normal. Colon demonstrates a moderate stool burden. Appendix is normal. There is diverticulosis without diverticulitis. Moderate stool burden in the sigmoid and rectum. Vascular calcifications are noted in the abdominal aorta and iliac arteries. There is an infrarenal abdominal aortic dilatation measuring 3.8 cm. Small fat containing umbilical hernias. No bowel obstruction, pneumoperitoneum, or pneumatosis. The bones are intact. There are bilateral L5 pars defects with severe disc space narrowing at L5/S1 and grade 2 anterolisthesis. Severe bilateral foraminal narrowing is present. IMPRESSION: No acute findings. Moderate stool burden Infrarenal abdominal aortic dilation without meeting aneurysmal criteria. No periaortic fat stranding. L5/S1 spondylolysis with spondylolisthesis. Severe bilateral foraminal narrowing. This document has been electronically signed by: Jeremie Torres III, MD PHD on 01/02/2025 01:42:00 Dictated By: Mary Torres Chronic Conditions Patient?s care impacted by: Other Substance abuse Discharge Plan Discharge Clinical Impression: Left groin pain, Opioid use disorder Patient Disposition: Home, Self-Care Instructions: Abdominal Pain (ED) Additional Instructions: Follow-up with your primary care physician return to the emergency room if worse Prescriptions: New naproxen [Naprosyn] 500 mg tablet 500 mg PO BID PRN (Reason: PAIN) Qty: 20 0RF No Action cephalexin 500 mg capsule 500 mg PO Q6H 7 Days Qty: 28 0RF prednisone 20 mg tablet 40 mg PO DAILY Qty: 10 0RF mupirocin 2 % ointment 1 appl topical BID Qty: 22 0RF ibuprofen 600 mg tablet 600 mg PO Q6H PRN (Reason: fever or pain) Qty: 30 0RF prednisone 20 mg tablet 20 mg PO DAILY 7 Days Qty: 7 0RF cephalexin 500 mg capsule 500 mg PO Q6H 7 Days Qty: 28 0RF Print Language: Macedonian
--- OUTSIDE RECORDS SUMMARY | 2025-01-01 21:20 | XMS_ITS | Clinical Summary ---
Author Organization [facility] Address [address] [place] [address] Care Team Providers Care Handling Tech Name Role Phone Unavailable Primary Care Provider [...] 2007 Zoster Vaccines (1 of 2) 2007 Depression Screening 04/28/2024 COVID-19 Vaccine (1 - 2023-2 5 season) 2024 Influenza Vaccine (#1) 2024 RSV Immunization Adult [...]
--- OUTSIDE RECORDS SUMMARY | 2025-01-01 21:20 | XMS_ITS | Encounter Summary ---
Author Organization [employer] Address [address] [place] [address] 7 [place] [address] Care Team Providers Care Healthcare Prof Name Role Phone Unavailable Primary Care Provider Unavailabl e Reason for Visit * Reason Onset Date Comments New Pt Appt- check ins 12/28/2024 Encounter Details Date Type Department Care Team ([facility] st Contact Info) Description 12/28/2024 Telephone [facility] MEDICINE [address] [place] [phone] Charlette Pantoja RN [address] [place] [address] New Pt Appt- check ins Social History Tobacco Use Types Packs/Day Years Used Date Smoking Tobacco: Never Assessed Sex and Gender Information Value Date Recorded Sex Assigned at Male 02/25/2022 10:40 AM EDT Legal Sex Male 10:40 AM EDT Gender Identity Male 02/25/2022 10:40 AM EDT Sexual Orientation Straight 02/25/2022 10 :40 AM EDT documented as of this encounter Miscellaneous Notes * Telephone Encounter - No Randall - 12/28/2024 9:34 AM EDT Outgoing call to pt to inquire if pt will still like to become a pt. No answer. * Telephone Encounter - Charlette Pantoja RN - 12/28/2024 8:13 AM EDT Hello, Please check insurance first, looks like an attempt was made to reach pt >1yr ago. Please try again. Ty documented in this encounter Plan of Treatment Not on file documented as of this encounter Visit Diagnoses Not on filedocumented in this encounter
--- OUTSIDE RECORDS SUMMARY | 2025-01-01 21:21 | XMS_ITS | Clinical Summary ---
Author Organization [employer] Address [address] [facility] [address] [place] [address] Care Team Providers Care Custom Shoemaker Name Role Phone Unavailable Primary Care Provider Unavailabl e Encounters Date Type Department Care Team Description 12/28/2024 Telephone [facility] [address] [place] [address] Charlette Pantoja RN New Pt Appt- check ins 12/25/2024 Orders Only [facility] External Provider, [facility] from Last 3 Months Social History Tobacco Use Types Packs/Day Years [...] season) 2024 Influenza Vaccine (#1) 2024 RSV Patients and [...] on patient's age to complete this topic Procedures Procedure Name Priority Date/Time Associated Diagnosis Comments XR KUB AND UPRIGHT 2 VIEWS Routine 12/25/2024 8:48 PM EDT LIPASE Routine 12/25/2024 7:29 PM EDT MAGNESIUM Routine 12/25/2024 7:29 PM EDT COMPREHENSIVE METABOLIC PANEL Routine 12/25/2024 7:29 PM EDT CBC WITH AUTO DIFFERENTIAL Routine 12/25/2024 7:29 PM EDT from Last 3 Months Results * XR KUB and Upright 2 Views (12/25/2024 8:48 PM EDT) Anatomical Region Laterality Modality Radiographic Jacy ging 12/25/2024 8:48 PM EDT Narrative 12/25/2024 8:50 PM EDT [facility] [address] [place] [address] XRay Report Signed Patient: Jose Esqueda MR#: [id number] : 1955 Acct:[id number] Age/Sex: 69 / M ADM Date: 12/25/24 Loc: HO.ED Attending Dr: Ordering Physician: Yadira Choi Date of Service: 12/25/24 Procedure(s): XR KUB Accession Number(s): [id number] cc: Yadira Choi; [facility] CLINICAL HISTORY: pain Abdominal radiographs Comparison: None available Findings: There is a nonobstructive bowel gas pattern. Stool quantity is moderately increased. No pneumoperitoneum or pneumatosis. No acute osseous or soft tissue abnormality. Impression: Moderately increased stool quantity may indicate constipation. This document has been electronically signed by: Salima Goldstein MD on 12/25/2024 20:48:49 Dictated By: Salima Chaudhari MD Signed By: <Electronically signed by Salima Chaudhari MD in OV> 12/25/242048 DD/ 47 TD/TT: 12/25/242047 Sweep Molder: Procedure Note Donotuseinterpreter, Image - 12/25/2024 [facility] [address] [place] [address] XRay Report Signed Patient: Jose EsquedaMR#: [id number] : 1955cct:[id number] Age/Sex: 69 / MADM Date: 12/25/24 Loc: HO.ED Attending Dr: Ordering Physician: Yadira Choi Date of Service: 12/25/24 Procedure(s): XR KUB Accession Number(s): [id number] cc: Yadira Choi; [facility] CLINICAL HISTORY: pain Abdominal radiographs Comparison: None available Findings: There is a nonobstructive bowel gas pattern. Stool quantity is moderately increased. No pneumoperitoneum or pneumatosis. No acute osseous or soft tissue abnormality. Impression: Moderately increased stool quantity may indicate constipation. This document has been electronically signed by: Salima Goldstein MD on 12/25/2024 20:48:49 Dictated By: Salima Chaudhari MD Signed By: <Electronically signed by Salima Chaudhari MD in OV> 12/25/242048 DD/ 47 TD/TT: 12/25/242047 Sweep Molder: [facility] External Provider IMG XR PROCEDURES Final Result * (ABNORMAL) CBC auto differential (12/25/2024 7:29 PM EDT) White Blood Count 7.9 4.8 - 10.8 X10*3/uL [facility] Red Blood Count 4.05(L) 4.60 - 5.80 X10*6/uL [facility] Hemoglobin 12.6(L) 14.0 - 18.0 g/dl [facility] Hematocrit 37.8(L) 42.0 - 52.0 % [facility] Mean Corpuscular Volume 93.3 80.0 - 98.0 fL [facility] Mean Corpuscular Hemoglobin 31.1 27.0 - 33.0 pg [facility] Mean Corpuscular HGB Conc 33.3 31.0 - 36.0 g/dl [facility] Red Cell Distribution Width 13.6 11.0 - 16.0 % [facility] Platelet Count 260 160 - 400 X10*3/uL [facility] Mean Platelet Volume 10.2 9.4 - 12.4 fL [facility] Neutrophils Percent Auto 55.4 45 - 73 % [facility] Imm Gran Pct Auto 0.3 0.0 - 0.4 % [facility] Lymphocytes Percent Auto 31.7 20 - 40 % [facility] Monocytes Percent Auto 8.9 2 - 11 % [facility] Eosinophils Percent Auto 2.8 0 - 4 % [facility] Basophils Percent Auto 0.9 0 - 2 % [facility] NRBC Pct Auto 0.0 0.0 - 0.2 /100WBC [facility] Neutrophils Absolute Auto 4.4 2.0 - 8.3 x10*3/uL [facility] Imm Gran Abs Auto 0.02 0.00 - 0.03 X10*3/uL [facility] Lymphocytes Absolute Auto 2.5 1.2 - 4.9 X10*3/uL [facility] Monocytes Absolute Auto 0.7 0.1 - 1.2 X10*3/uL [facility] Eosinophils Absolute Auto 0.2 0.0 - 0.4 X10*3/uL [facility] Basophils Absolute Auto 0.1 0.0 - 0.2 X10*3/uL [facility] NRBC Abs Auto 0.000 0.0 - 0.012 X10*3/uL [facility] 12/25/2024 7:29 PM EDT 12/25/2024 7:31 PM EDT us Generic External Data Provider LAB BLOOD ORDERAB LES Final Result Performing Organization Address [facility] Co de Phone Number [facility] [address] [place] [phone] * Magnesium (12/25/2024 7:29 PM EDT) Magnesium 2.3 1.6 - 2.6 mg/dL [facility] 12/25/2024 7:29 PM EDT 12/25/2024 7:31 PM EDT Generic External Data Provider LAB BLOOD ORDERAB LES Final Result Performing Organization Address [facility]/ZIP Co de Phone Number [facility] [address] [place] [address] [phone] * Lipase (12/25/2024 7:29 PM EDT) Lipase 10 8 - 78 U/L [facility] 12/25/2024 7:29 PM EDT 12/25/2024 7:31 PM EDT us Generic External Data Provider LAB BLOOD ORDERAB LES Final Result [facility] [address] [place] [phone] * (ABNORMAL) Comprehensive Metabolic Panel (12/25/2024 7:29 PM EDT) Sodium 143 135 - 145 mmol/L [facility] Potassium 4.1 3.3 - 5.1 mmol/L [facility] Chloride 107 96 - 108 mmol/L [facility] Carbon Dioxide 25 22 - 29 mmol/L [facility] Anion Gap 15 12 - 20 [facility] Urea Nitrogen (BUN) 19(H) 9 - 16 mg/dL [facility] Creatinine, Serum 1.21 0.5 - 1.4 mg/dL [facility] Creatinine Clr Calc Pharmacy 61.1 [facility] Comment:eGFR (calculated fro m the MDRD study equation) and eCrCl(calculated from the Cockcroft-Gault equation) are based ondifferent parameters and may not yield comparable results.If eCrCl result is absurd, please check patient'sheight/weight. Estimated Glomerular Filt Rate 60 [facility] Comment:Chronic Kidney Disea se: Estimated GFR < 60 mL/min/1.80z8Eexqtu Kidney Disease: Estimated GFR < 15 mL/min/1.73m2 Glucose 75 60 - 115 mg/dL [facility] Calcium 9.1 8.4 - 10.2 mg/dL [facility] Bilirubin, Total 0.4 0.0 - 1.0 mg/dL [facility] Aspartate Amino Transferase 38(H) 5 - 37 U/L [facility] Alanine Aminotransferase 18 0 - 40 U/L [facility] Total Protein 7.7 6.5 - 8.0 g/dL [facility] Albumin Level 4.3 3.5 - 5.0 g/dL [facility] Alkaline Phosphatase 62 39 - 117 U/L [facility] 12/25/2024 7:29 PM EDT 12/25/2024 7:31 PM EDT us Generic External Data Provider LAB BLOOD ORDERAB LES Final Result [facility] [address] [place] [phone] from Last 3 Months Insurance [facility] MEDICARE ADVANTAGE HMO [facility]
--- NOTE | 2025-01-01 21:54 | PC.NURSE ---
t/w attempted to obtain labs from pt. pt refuses stating that he wants [his] labs from yesterday pt has no visit on record from yesterday that this nurse could access. pt wishes to wait for provider eval for any further diagnostics.Primary RN notified
[2025-01-01 22:54] LABS: Appearance Urine Clear; Glucose Urine UA Negative (Negative); PH 6.0 (5.0-9.0); Specific Gravity - Urine 1.010 (1.005-1.025)
[2025-01-01 23:54] LABS: Alanine Aminotransferase 21 U/L (0-40); Albumin Level 4.8 g/dL (3.5-5.0); Alkaline Phosphatase 71 U/L (39-117); Anion Gap 15 (12-20); Aspartate Amino Transferase 29 U/L (5-37); Blood Urea Nitrogen 16 mg/dL (9-16); Calcium 9.6 mg/dL (8.4-10.2); Carbon Dioxide 26 mmol/L (22-29); Chloride 106 mmol/L (96-108); Creatinine Clr Calc Pharmacy 66.7; Estimated Glomerular Filt Rate > 60; Magnesium 2.2 mg/dL (1.6-2.6); Potassium 4.6 mmol/L (3.3-5.1); Sodium 142 mmol/L (135-145); Total Protein 8.5 g/dL (6.5-8.0)
[2025-01-02 00:27] LABS: Hematocrit 38.0 % (42.0-52.0); Hemoglobin 13.0 g/dl (14.0-18.0); Imm Gran Abs Auto 0.02 X10*3/uL (0.00-0.03); Imm Gran Pct Auto 0.3 % (0.0-0.4); Lymphocytes Absolute Auto 2.2 X10*3/uL (1.2-4.9); MANUAL DIFF FLAG SCAN; Mean Corpuscular HGB Conc 34.2 g/dl (31.0-36.0); Mean Corpuscular Hemoglobin 31.4 pg (27.0-33.0); Mean Corpuscular Volume 91.8 fL (80.0-98.0); NRBC Abs Auto 0.000 X10*3/uL (0.0-0.012); NRBC Pct Auto 0.0 /100WBC (0.0-0.2); PLT CLUMP 1; Red Blood Count 4.14 X10*6/uL (4.60-5.80); SCAN SMEAR FLAG 1
[2025-01-02 00:28] VITALS: BP 99/56; PULSE 65; RESP 16; TEMP 36.1; O2SAT 95
[2025-01-02 00:35] LABS: White Blood Count 6.7 X10*3/uL (4.8-10.8)
[2025-01-02 00:42] LABS: Platelet Count 204 X10*3/uL (160-400)
[2025-01-02 01:29] LABS: Cannabinoid Screen Urine Not Detected (Not Detect)
[2025-01-02 02:02] VITALS: BP 102/57; PULSE 48; RESP 16; TEMP 36.4; O2SAT 99
[2025-01-02 02:04] VITALS: BP 102/57; PULSE 48; RESP 16; TEMP 36.4; O2SAT 99
== END 2025-01-02 02:06 | disposition home or self-care (01) ==
PROVIDERS: Physician Assistant Medical; Emergency Provider Emergency Medicine; PCP Internal Medicine
DX: R10.32 Left lower quadrant pain (principal); F11.10 Opioid abuse, uncomplicated; Z87.19 Personal history of other diseases of the digestive system
CPT/HCPCS: 36415; 74176; 80053; 80307; 81003; 83735; 85025; 99283; 99284

== ENCOUNTER → 2025-01-01 22:40 | Outpatient (BNV) | payer OTHER, SELFPAY | PROVIDERS: Emergency Provider Emergency Medicine; PCP Internal Medicine; Visit Provider Radiology Diagnostic Radiology | DX: K57.30 Diverticulosis of large intestine without perforation or abscess without bleeding (principal) | CPT/HCPCS: 74176 ==